=== PATIENT | female | born 1940 | race Caucasian/White ===

== ENCOUNTER → 2017-09-28 | Outpatient (CLI) | payer OTHER, MEDICARE ==
[~2017-09-28] MED LIST: ALBUTEROL2.5 MG/31 INH; ANTIVERT25 MG PO; CALCIUM 500 +1 EAC5 PO; FISH OIL 1,001000 M2 PO; GLUCOPHAGE XR500 M1 PO; LEVAQUIN 500 M500 M1 PO; LISINOPRIL10 MG PO; MEDROLDOSEPACK PO; NEBULIZER MISCELL; NIACIN50 MG PO; OMEPRAZOLE20 M1 PO; PLAVIX 75 MG TA75 M1 PO; PREMPHASE 0.621 EAC1 PO; PRIMIDONE50 MG PO; UNICOMPLEX M TA1 TA1 PO; VENTOLIN HFA 1818 GM INH; VISTARIL 25 MG25 M1 PO; VITAMIN E400 UNIT PO; XANAX 0.25 MG0.25 MG PO; ZETIA10 MG PO; ZOCOR40 MG PO
== END ==
LOC: M.RAD 13:10
DX: M47.896 Other spondylosis, lumbar region (principal); M41.86 Other forms of scoliosis, lumbar region; I70.0 Atherosclerosis of aorta

== ENCOUNTER → 2017-10-22 | Outpatient (CLI) | payer OTHER, MEDICARE | LOC: M.RAD 14:38 | DX: M25.861 Other specified joint disorders, right knee (principal); R29.898 Other symptoms and signs involving the musculoskeletal system; I10 Essential (primary) hypertension ==

== ENCOUNTER → 2018-11-04 | Outpatient (CLI) | payer MEDICARE, OTHER | LOC: M.ULTRA 09:29 | DX: I71.4 Abdominal aortic aneurysm, without rupture (principal); M48.062 Spinal stenosis, lumbar region with neurogenic claudication; M21.372 Foot drop, left foot; M21.371 Foot drop, right foot; J44.9 Chronic obstructive pulmonary disease, unspecified; I10 Essential (primary) hypertension; E78.5 Hyperlipidemia, unspecified; E66.9 Obesity, unspecified; E11.9 Type 2 diabetes mellitus without complications; M81.0 Age-related osteoporosis without current pathological fracture; F41.9 Anxiety disorder, unspecified; F17.210 Nicotine dependence, cigarettes, uncomplicated; Z68.39 Body mass index [BMI] 39.0-39.9, adult; Z79.899 Other long term (current) drug therapy ==